=== PATIENT | female | born 1970 | race African-American/Black ===

== ENCOUNTER 2017-03-19 21:23 | Emergency (ER) | payer OTHER ==
[~2017-03-19] VITALS: Ht 165.1 cm; Wt 87.0 kg
[~2017-03-19 21:23] MED LIST: BENZ100 PO; ZITH250T PO; ZOFR4TAB3 PO
[2017-03-19 21:25] VITALS: BP 154/68; PULSE 81; RESP 16; TEMP 98.2; O2SAT 100
[2017-03-19] MEDS ORDERED: CYCL1TAB29 PO (23:41)
[2017-03-19] MEDS ORDERED: DICL75TA PO (23:41)
[2017-03-19] MEDS ORDERED: ACETAMINOPHEN/HYDROcodone 325 MG/5 MG TAB PO ONE (23:45)
[2017-03-19] MEDS ORDERED: CYCLOBENZAPRINE HCL 10 MG TAB PO ONE (23:45)
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
== END 2017-03-20 00:33 | disposition home or self-care (01) ==
LOC: NEPD 21:23
DX: S16.1XXA Strain of muscle, fascia and tendon at neck level, initial encounter (principal); S39.012A Strain of muscle, fascia and tendon of lower back, initial encounter; V43.52XA Car driver injured in collision with other type car in traffic accident, initial encounter
CPT/HCPCS: 99284

== ENCOUNTER 2017-04-06 17:27 | Observation (INO) | payer SELFPAY ==
[2017-04-06] VITALS (8 sets, daily range): BP systolic 141–235; BP diastolic 67–110; PULSE 71–82; RESP 16–20; TEMP 97.8–98.1; O2SAT 98–100
[~2017-04-06] VITALS: Ht 165.1 cm; Wt 82.0 kg
[~2017-04-06 17:27] MED LIST changes: -BENZ100 PO; +CYCL10TA PO; +DICL75TA PO; -ZITH250T PO; -ZOFR4TAB3 PO
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
[2017-04-06] MEDS ORDERED: SODIUM CHLOR 0.9% 1000 ML INJ 1,000 ML IV SCH (18:12)
[2017-04-06] MEDS ORDERED: ASPIRIN 81 MG CHEW TAB PO ONE (18:15)
[2017-04-06] MEDS ORDERED: SODIUM CHLORID 0.9% 500 ML INJ 500 ML IV ONE (18:15)
[2017-04-06] MEDS ORDERED: SODIUM CHLORIDE 0.9% FLUSH 10 ML FLUSH IV FLUSH PRN ×2 (18:15→20:00)
[2017-04-06] MEDS ORDERED: ONDANSETRON HCL 4 MG/2 ML VIAL IVP ONE (18:15)
[2017-04-06] MEDS ORDERED: SODIUM CHLORIDE 0.9% FLUSH 10 ML FLUSH IVF PRN (18:15)
--- NOTE | 2017-04-06 18:33 | RADRPT ---
EXAM DATE/TIME: 04/06/2017 18:20 [facility] COMPARISON: CHEST SINGLE AP, February 03, 2016, 14:16. INDICATIONS : Chest pain. MEDICAL HISTORY : Hypertension. SURGICAL HISTORY : LEEP in 1999. ENCOUNTER: Initial ACUITY: 1 day PAIN SCORE: 5/10 LOCATION: Bilateral chest FINDINGS: A single view of the chest demonstrates the lungs to be symmetrically aerated without evidence of mas s, infiltrate or effusion. The cardiomediastinal contours are unremarkable. Osseous structures are intact. CONCLUSION: No acute disease. Trey Crystal MD on April 06, 2017 at 18:31 Board Certified Radiologist. This report was verified electronically.
[2017-04-06] MEDS ORDERED: hydrALAZINE HCL 20 MG/ML VIAL IV PUSH ONE (19:00)
[2017-04-06 19:06] LABS: BACTERIA, URINE RARE /hpf; BILIRUBIN, URINE NEG (NEG); BLOOD, URINE NEG (NEG); GLUCOSE,URINE NEG (NEG); KETONE, URINE NEG (NEG); NITRITE,URINE NEG (NEG); SQUAMOUS EPITHELIAL CELL URINE 2 /hpf (0-5); URINE COLOR LIGHT-YELLOW (YELLW/STRAW); URINE LEUKOCYTE ESTERASE NEG (NEG)
[2017-04-06 19:07] LABS: AUTOMATED NEUTROPHIL # 5.1 TH/MM3 (1.8-7.7); BASOPHIL % 0.6 % (0.0-2.0); EOSINOPHIL # 0.2 TH/MM3 (0-0.4); EOSINOPHIL % 2.6 % (0.0-4.0); HEMATOCRIT 40.7 % (35.0-46.0); HEMOGLOBIN 13.4 GM/DL (11.6-15.3); LYMPH % 29.2 % (9.0-44.0); LYMPHOCYTE # 2.5 TH/MM3 (1.0-4.8); MEAN CELL VOLUME 87.6 FL (80.0-100.0); MEAN CORPUSCULAR HEMOGLOBIN 28.8 PG (27.0-34.0); MEAN CORPUSCULAR HGB CONC 32.9 % (32.0-36.0); MEAN PLATELET VOLUME 8.4 FL (7.0-11.0); MONO % 8.5 % (0.0-8.0); MONOCYTE # 0.7 TH/MM3 (0-0.9); NEUT % 59.1 % (16.0-70.0); PLATELET COUNT 339 TH/MM3 (150-450); RED BLOOD COUNT 4.65 MIL/MM3 (4.00-5.30); RED CELL DISTRIBUTION WIDTH 16.9 % (11.6-17.2); WHITE BLOOD COUNT 8.7 TH/MM3 (4.0-11.0)
--- NOTE | 2017-04-06 19:22 | RADRPT ---
EXAM DATE/TIME: 04/06/2017 19:07 [facility] COMPARISON: No previous studies available for comparison. INDICATIONS : Dizziness. RADIATION DOSE: 56.35 CTDIvol (mGy) MEDICAL HISTORY : Hypertension. SURGICAL HISTORY : None. ENCOUNTER: Initial ACUITY: 1 day PAIN SCALE: 0/10 LOCATION: cranial TECHNIQUE: Multiple contiguous axial images were obtained of the head. Using automated exposure control and adj ustment of the mA and/or kV according to patient size, radiation dose was kept as low as reasonably a chievable to obtain optimal diagnostic quality images. DICOM format image data is available electro nically for review and comparison. FINDINGS: CEREBRUM: The ventricles are normal for age. No evidence of midline shift, mass lesion, hemorrhage or acute in farction. No extra-axial fluid collections are seen. POSTERIOR FOSSA: The cerebellum and brainstem are intact. The 4th ventricle is midline. The cerebellopontine angle i s unremarkable. EXTRACRANIAL: The visualized portion of the orbits is intact. SKULL: The calvaria is intact. No evidence of skull fracture. CONCLUSION: Negative noncontrast CT. Trey Crystal MD on April 06, 2017 at 19:19 Board Certified Radiologist. This report was verified electronically.
[2017-04-06 19:25] LABS: ALBUMIN 4.3 GM/DL (3.4-5.0); AST (GOT) 15 U/L (15-37); BICARBONATE 27.4 MEQ/L (21.0-32.0); BLOOD UREA NITROGEN 9 MG/DL (7-18); CALCIUM 9.3 MG/DL (8.5-10.1); CHLORIDE 103 MEQ/L (98-107); CREATININE 0.85 MG/DL (0.50-1.00); GLOMERULAR FILTRATION RATE 87 ML/MIN (>89); GLUCOSE,RANDOM 69 MG/DL (74-106); LIPASE 164 U/L (73-393); MAGNESIUM 2.3 MG/DL (1.5-2.5); SODIUM (NA) 138 MEQ/L (136-145)
[2017-04-06 19:27] LABS: PROTHROMBIN TIME - PATIENT 10.6 SEC (9.8-11.6)
[2017-04-06 19:30] LABS: ALKALINE PHOSPHATASE 83 U/L (45-117); ALT (GPT) 25 U/L (10-53); TOTAL BILIRUBIN ADULT 0.3 MG/DL (0.2-1.0); TOTAL PROTEIN 8.3 GM/DL (6.4-8.2); TROPONIN I LESS THAN 0.02 NG/ML (0.02-0.05)
[2017-04-06] MEDS ORDERED: NITROGLYCERIN 0.4 MG SL 25 TABS/BTL SL PRN (20:00)
[2017-04-06] MEDS ORDERED: NITROGLYCERIN 0.4 MG SL 25 TABS/BTL SL ONE (20:00)
[2017-04-06] MEDS ORDERED: ONDANSETRON HCL 4 MG/2 ML VIAL IV PUSH PRN (20:00)
--- NOTE | 2017-04-06 20:04 | PD ---
Physical Exam Narrative I, Dr. Asencio, have reviewed the advance practice practitioner's documentation and am in agreement, met with the patient face to face, made the diagnosis, and the medical decision making was done by me. *My assessment and Findings: ACS vs. musculoskeletal pain vs. GERD 46yo F with PMH of HTN presents to the ED with midsternal chest discomfort while working today. Associated with nausea, dizziness. Pain is intermittent, lasting minutes at a time and sometimes goes to left chest. Denies any sob, fever, vomiting, abdominal pain, focal weakness or numbness. Never had a cardiac work up. Labs reviewed, no leukocytosis. Glucose 69, pt given food. Troponin negative. UA negative. CT brain negative. CXR negative. Pt is hypertensive but states she does not take anything for her HTN. Given hydralazine with improvement of BP. Pt also given aspirin and sublingual nitro PRN chest pain. Pt has never had any cardiac work up or stress test. Will admit for chest pain center for serial EKG and cardiac enzymes. Data Data Last Documented VS Vital Signs Date Time Temp Pulse Resp B/P (MAP) Pulse Ox O2 Delivery O2 Flow Rate FiO2 04/06/17 19:35 71 18 171/84 (113) 99 Room Air 04/06/17 17:31 98.1 Orders Orders Complete Blood Count With Diff (04/06/17 18:12) Comprehensive Metabolic Panel (04/06/17 18:12) Lipase (04/06/17 18:12) Lactic Acid (04/06/17 18:12) Prothrombin Time / Inr (Pt) (04/06/17 18:12) Act Partial Throm Time (Ptt) (04/06/17 18:12) Urinalysis - C+S If Indicated (04/06/17 18:12) Iv Access Insert/Monitor (04/06/17 18:12) Ecg Monitoring (04/06/17 18:12) Oximetry (04/06/17 18:12) NPO (04/06/17 18:12) Ondansetron Inj (Zofran Inj) (04/06/17 18:15) Sodium Chlor 0.9% 1000 Ml Inj (Ns 1000 M (04/06/17 18:12) Sodium Chloride 0.9% Flush (Ns Flush) (04/06/17 18:15) Electrocardiogram (04/06/17 18:12) Chest, Single Ap (04/06/17 18:12) Ckmb (Isoenzyme) Profile (04/06/17 18:12) Magnesium (Mg) (04/06/17 18:12) Troponin I (04/06/17 18:12) Aspirin Chew (Aspirin Chew) (04/06/17 18:15) Sodium Chloride 0.9% Flush (Ns Flush) (04/06/17 18:15) Sodium Chlorid 0.9% 500 Ml Inj (Ns 500 M (04/06/17 18:15) Ct Brain W/O Iv Contrast(Rout) (04/06/17 18:44) Orthostatic Vital Signs (04/06/17 18:44) Hydralazine Inj (Apresoline Inj) (04/06/17 19:00) CKMB (04/06/17 18:30) CKMB% (04/06/17 18:30) Activity Bed Rest With Brp (04/06/17 20:00) Vital Signs (Adult) Q4H (04/06/17 20:00) Cardiac Rhythm .As Directed (04/06/17 20:00) Notify Dr: Other .PRN (04/06/17 20:00) Notify Dr. Parameters (04/06/17 20:00) Resp Oxygen Nasal Cannula (04/06/17 ) Diet Heart Healthy (04/07/17 Breakfast) Ckmb (Isoenzyme) Profile (04/06/17 20:00) Ckmb (Isoenzyme) Profile (04/06/17 23:00) Troponin I (04/06/17 20:00) Troponin I (04/06/17 23:00) Electrocardiogram (04/06/17 20:00) Electrocardiogram (04/06/17 23:00) ^ Obtain (04/06/17 20:00) Sodium Chloride 0.9% Flush (Ns Flush) (04/06/17 20:00) Sodium Chloride 0.9% Flush (Ns Flush) (04/06/17 21:00) Ondansetron Inj (Zofran Inj) (04/06/17 20:00) Famotidine (Pepcid) (04/06/17 21:00) Nitroglycerin Sl (Nitrostat Sl) (04/06/17 20:00) Watermaster / Telemetry TATIANA.Q8H (04/06/17 20:00) Nitroglycerin Sl (Nitrostat Sl) (04/06/17 20:00) Morphine Inj (Morphine Inj) (04/06/17 20:15) Admit Order (Ed Use Only) (04/06/17 20:03) Labs Laboratory Tests Test 04/06/17 18:30 04/06/17 18:35 White Blood Count 8.7 TH/MM3 Red Blood Count 4.65 MIL/MM3 Hemoglobin 13.4 GM/DL Hematocrit 40.7 % Mean Corpuscular Volume 87.6 FL Mean Corpuscular Hemoglobin 28.8 PG Mean Corpuscular Hemoglobin Concent 32.9 % Red Cell Distribution Width 16.9 % Platelet Count 339 TH/MM3 Mean Platelet Volume 8.4 FL Neutrophils (%) (Auto) 59.1 % Lymphocytes (%) (Auto) 29.2 % Monocytes (%) (Auto) 8.5 % Eosinophils (%) (Auto) 2.6 % Basophils (%) (Auto) 0.6 % Neutrophils # (Auto) 5.1 TH/MM3 Lymphocytes # (Auto) 2.5 TH/MM3 Monocytes # (Auto) 0.7 TH/MM3 Eosinophils # (Auto) 0.2 TH/MM3 Basophils # (Auto) 0.0 TH/MM3 CBC Comment DIFF FINAL Differential Comment Prothrombin Time 10.6 SEC Prothromb Time International Ratio 1.0 RATIO Activated Partial Thromboplast Time 27.8 SEC Urine Color LIGHT-YELLOW Urine Turbidity CLEAR Urine pH 6.0 Urine Specific [place] 1.008 Urine Protein NEG mg/dL Urine Glucose (UA) NEG mg/dL Urine Ketones NEG mg/dL Urine Occult Blood NEG Urine Nitrite NEG Urine Bilirubin NEG Urine Urobilinogen LESS THAN 2.0 MG/DL Urine Leukocyte Esterase NEG Urine RBC LESS THAN 1 /hpf Urine WBC LESS THAN 1 /hpf Urine Squamous Epithelial Cells 2 /hpf Urine Bacteria RARE /hpf Microscopic Urinalysis Comment CULT NOT INDICATED Blood Urea Nitrogen 9 MG/DL Creatinine 0.85 MG/DL Random Glucose 69 MG/DL Total Protein 8.3 GM/DL Albumin 4.3 GM/DL Calcium Level 9.3 MG/DL Magnesium Level 2.3 MG/DL Alkaline Phosphatase 83 U/L Aspartate Amino Transf (AST/SGOT) 15 U/L Alanine Aminotransferase (ALT/SGPT) 25 U/L Total Bilirubin 0.3 MG/DL Sodium Level 138 MEQ/L Potassium Level 3.5 MEQ/L Chloride Level 103 MEQ/L Carbon Dioxide Level 27.4 MEQ/L Anion Gap 8 MEQ/L Estimat Glomerular Filtration Rate 87 ML/MIN Total Creatine Kinase 132 U/L Creatine Kinase MB 1.5 NG/ML Troponin I LESS THAN 0.02 NG/ML Lipase 164 U/L Lactic Acid Level 0.7 mmol/L [facility] Supervised Visit with JAMAL: Yes Interpretation(s) EKG: NSR 65bpm. Normal axis. No ST segment elevation or depression. Diagnosis Primary Impression: Chest pain Qualified Codes: R07.9 - Chest pain, unspecified Admitting Information Admitting Physician Requests: Observation Condition: Stable Dayami Asencio DO Apr 06, 2017 20:04
[2017-04-06] MEDS ORDERED: MORPHINE SULFATE 2 MG/ML INJ IM ONE (20:15)
[2017-04-06] MEDS ORDERED: MORPHINE SULFATE 2 MG/ML INJ IV PUSH ONE (20:30)
[2017-04-06] MEDS: FAMOTIDINE 20 MG TAB PO SCH (21:54)
[2017-04-06] MEDS: SODIUM CHLORIDE 0.9% FLUSH 10 ML FLUSH IV FLUSH SCH (21:54)
[2017-04-06 22:37] LABS: TROPONIN I LESS THAN 0.02 NG/ML (0.02-0.05)
[2017-04-07 00:32] VITALS: PULSE 68
[2017-04-07 01:09] LABS: TROPONIN I LESS THAN 0.02 NG/ML (0.02-0.05)
[2017-04-07 04:45] VITALS: PULSE 61
[2017-04-07 04:50] VITALS: BP 121/61; PULSE 63; RESP 18; TEMP 98.1; O2SAT 98
[2017-04-07 07:00] VITALS: PULSE 63
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
[2017-04-07 07:32] VITALS: BP 142/86; PULSE 60; RESP 20; TEMP 97.9; O2SAT 96
[2017-04-07] MEDS ORDERED: amLODIPine BESYLATE 5 MG TAB PO SCH (07:45)
--- NOTE | 2017-04-07 08:14 | EKG ---
Date Performed: 04/06/2017 Time Performed: 22:18:42 PTAGE: 46 years EKG: Sinus rhythm NONSPECIFIC T-WAVE ABNORMALITY BORDERLINE ECG PREVIOUS TRACING : 04/06/2017 18.32 Since previous tracing, no significant change noted DOCTOR: Jovani Carson Interpretating Date/Time 04/07/2017 08:13:37
--- NOTE | 2017-04-07 08:20 | EKG ---
Date Performed: 04/07/2017 Time Performed: 00:44:23 PTAGE: 46 years EKG: Sinus rhythm NONSPECIFIC T-WAVE ABNORMALITY BORDERLINE ECG PREVIOUS TRACING : 04/06/2017 22.18 Since previous tracing, no significant change noted DOCTOR: Jovani Carson Interpretating Date/Time 04/07/2017 08:18:28
[2017-04-07] MEDS: FAMOTIDINE 20 MG TAB PO SCH (09:05)
[2017-04-07] MEDS: SODIUM CHLORIDE 0.9% FLUSH 10 ML FLUSH IV FLUSH SCH (09:06)
--- NOTE | 2017-04-07 09:16 | EKG ---
Date Performed: 04/06/2017 Time Performed: 18:32:53 PTAGE: 46 years EKG: Sinus rhythm NONSPECIFIC T-WAVE ABNORMALITY BORDERLINE ECG Compared to prior tracing no significant change PREVIOUS TRACING : 04/15/2008 18.50 DOCTOR: [place] Interpretating Date/Time 04/07/2017 09:15:57
[2017-04-07] MEDS ORDERED: REGADENOSON INJ 0.4 MG/5 ML SYR ONE (10:18)
--- NOTE | 2017-04-07 11:44 | RADRPT ---
EXAM DATE/TIME: 04/07/2017 09:33 [facility] COMPARISON: No previous studies available for comparison. INDICATIONS : Left and mid chest pain for one day. Angina. DOSE: 25.9 mCi Tc99m Myoview at stress. 8.7 mCi Tc99m Myoview at rest. 0.4 mg Lexiscan STRESS SYMPTOMS: None. EJECTION FRACTION: 65% MEDICAL HISTORY : Hypertension. SURGICAL HISTORY : None. ENCOUNTER: Initial ACUITY: 1 day PAIN SCALE: 7/10 LOCATION: Midsternal chest TECHNIQUE: The patient underwent pharmacologic stress with infusion of prescribed dose. Continuous ECG tracing was monitored during stress. Gated SPECT imaging was performed after stress and conventional SPECT i maging was performed at rest. The examination was performed on a SPECT/CT scanner, both attenuation and non-corrected datasets were reviewed. FINDINGS: DISTRIBUTION: The maximum perfused segment at stress is in the anterior lateral wall PERFUSION STUDY: The pattern of perfusion at stress is within normal limits. GATED STUDY: There is intact wall motion and thickening without hypokinetic or dyskinetic segments. CONCLUSION: Negative for stress-induced ischemia RISK CATEGORY: Low (<1% Annual Mortality Rate) Evangelist Eagle MD FACR on April 07, 2017 at 11:41 Board Certified Radiologist. This report was verified electronically.
[2017-04-07] MEDS ORDERED: AMLO5 PO (11:55)
--- NOTE | 2017-04-07 11:55 | HHI.DCPOC ---
Discharge Care Plan Diagnosis: (1) Chest pain (2) Hypertension Goals to Promote Your Health * To prevent worsening of your condition and complications * To maintain your health at the optimal level Directions to Meet Your Goals Take your medications as prescribed Follow your dietary instruction Follow activity as directed Keep your appointments as scheduled Take your immunizations and boosters as scheduled If your symptoms worsen call your PCP, if no PCP go to Urgent Care Center or Emergency Room Smoking is Dangerous to Your Health. Avoid second hand smoke Call the 24-hour hour crisis hotline for domestic abuse at Vitaly Caal Apr 07, 2017 11:55
--- NOTE | 2017-04-07 11:55 | HHI.DCPOC ---
Discharge Care Plan Diagnosis: (1) Chest pain (2) Hypertension Goals to Promote Your Health * To prevent worsening of your condition and complications * To maintain your health at the optimal level Directions to Meet Your Goals Take your medications as prescribed Follow your dietary instruction Follow activity as directed Keep your appointments as scheduled Take your immunizations and boosters as scheduled If your symptoms worsen call your PCP, if no PCP go to Urgent Care Center or Emergency Room Smoking is Dangerous to Your Health. Avoid second hand smoke Call the 24-hour hour crisis hotline for domestic abuse at Vitaly Caal Apr 07, 2017 11:55
--- NOTE | 2017-04-07 11:55 | HHI.DCPOC ---
Discharge Care Plan Diagnosis: (1) Chest pain (2) Hypertension Goals to Promote Your Health * To prevent worsening of your condition and complications * To maintain your health at the optimal level Directions to Meet Your Goals Take your medications as prescribed Follow your dietary instruction Follow activity as directed Keep your appointments as scheduled Take your immunizations and boosters as scheduled If your symptoms worsen call your PCP, if no PCP go to Urgent Care Center or Emergency Room Smoking is Dangerous to Your Health. Avoid second hand smoke Call the 24-hour hour crisis hotline for domestic abuse at Vitaly Caal Apr 07, 2017 11:55
[2017-04-07 12:10] VITALS: BP 126/60; PULSE 56; RESP 20; TEMP 98; O2SAT 95
--- NOTE | 2017-04-10 08:59 | TR ---
Date Performed: 04/07/2017 Time Performed: 10:17:38 DOCTOR: Jovani Carson DRUG LIST: CLINICAL HISTORY: REASON FOR TEST: REASON FOR ENDING: OBSERVATION: CONCLUSION: Lexiscan stress test was performed under standard four minute protocol. [place]ion[place] e was injected one minute prior to ending the test. No electrocardiographic abormalities were present to suggest ischemia. Nuclear imaging and interpretation are pending. COMMENTS:
== END 2017-04-07 12:39 | disposition home or self-care (01) ==
LOC: NEPE 17:27 → NEDA 20:04 → NEPFCDU 21:09
PROVIDERS: ADMIT Internal Medicine Cardiovascular Disease; ATTEND Internal Medicine Cardiovascular Disease
DX: R07.9 Chest pain, unspecified (principal); I10 Essential (primary) hypertension; M54.9 Dorsalgia, unspecified; R94.31 Abnormal electrocardiogram [ECG] [EKG]; Z87.442 Personal history of urinary calculi
CPT/HCPCS: 70450; 71010; 78452; 80053; 81001; 82550; 82552; 83605; 83690; 83735; 84484; 85025; 85610; 85730; 93005; 93017; 96361; 96374; 96375; 99285; A9502; G0378; J0360; J2270; J2405; J2785; J7030; J7040